=== PATIENT | male | born 1945 | race Caucasian/White ===

== ENCOUNTER → 2019-06-13 08:48 | Outpatient (BNVA) | payer OTHER, SELFPAY | PROVIDERS: PCP Family Medicine; Visit Provider Urology | DX: R97.20 Elevated prostate specific antigen [PSA] (principal); N40.1 Benign prostatic hyperplasia with lower urinary tract symptoms; N39.9 Disorder of urinary system, unspecified | CPT/HCPCS: 81001; 84153 ==

== ENCOUNTER → 2019-12-13 09:00 | Outpatient (BNVA) | payer OTHER, SELFPAY | PROVIDERS: PCP Family Medicine; Visit Provider Urology | DX: N40.1 Benign prostatic hyperplasia with lower urinary tract symptoms (principal); R97.20 Elevated prostate specific antigen [PSA] | CPT/HCPCS: 81001 ==

== ENCOUNTER → 2019-12-26 09:39 | Outpatient (BNVA) | payer OTHER, SELFPAY | PROVIDERS: PCP Family Medicine; Referring Provider Family Medicine; Visit Provider Orthopaedic Surgery | DX: M25.569 Pain in unspecified knee (principal) | CPT/HCPCS: 73560; 73565 ==

== ENCOUNTER → 2020-12-12 08:33 | Outpatient (BNVA) | payer OTHER, SELFPAY | PROVIDERS: PCP Family Medicine; Visit Provider Urology | DX: N40.1 Benign prostatic hyperplasia with lower urinary tract symptoms (principal); R97.20 Elevated prostate specific antigen [PSA] | CPT/HCPCS: 81003; 84153 ==

== ENCOUNTER 2021-12-16 08:13 | Outpatient (CLI) | payer OTHER, SELFPAY | END 2021-12-16 08:14 | disposition home or self-care (01) | LOC: LAB 08:14 | PROVIDERS: PCP Family Medicine; Visit Provider Urology | DX: R97.20 Elevated prostate specific antigen [PSA] (principal); N40.1 Benign prostatic hyperplasia with lower urinary tract symptoms | CPT/HCPCS: 36415; 51741; 51798; 81003; 84153; 99214 ==

== ENCOUNTER 2022-06-15 10:18 | Outpatient (CLI) | payer OTHER, SELFPAY ==
[2022-06-15 12:21] LABS: Prostate Specific AG Urology 5.36 ng/mL (0-4)
== END 2022-06-15 10:19 | disposition home or self-care (01) ==
LOC: LAB 10:23
PROVIDERS: PCP Family Medicine; Visit Provider Urology
DX: N40.1 Benign prostatic hyperplasia with lower urinary tract symptoms (principal)
CPT/HCPCS: 36415; 84153

== ENCOUNTER → 2022-06-23 08:38 | Outpatient (BNVA) | payer OTHER, SELFPAY | PROVIDERS: PCP Family Medicine; Visit Provider Urology | DX: N40.1 Benign prostatic hyperplasia with lower urinary tract symptoms (principal); N13.8 Other obstructive and reflux uropathy; R97.20 Elevated prostate specific antigen [PSA]; Z80.0 Family history of malignant neoplasm of digestive organs | CPT/HCPCS: 51798; 99213 ==

== ENCOUNTER 2023-04-13 20:00 | Outpatient (CLI) | payer OTHER, SELFPAY | END 2023-04-13 20:01 | disposition home or self-care (01) | LOC: SLEEP 04-14 05:52 | PROVIDERS: PCP Family Medicine; Visit Provider Family Medicine | DX: G47.33 Obstructive sleep apnea (adult) (pediatric) (principal); R06.83 Snoring | CPT/HCPCS: 95810 ==

== ENCOUNTER 2023-07-07 11:27 | Emergency (ER) | payer OTHER, SELFPAY ==
[2023-07-07 11:38] VITALS: BP 149/93; PULSE 107; RESP 18; TEMP 36.6; O2SAT 96
--- NOTE | 2023-07-07 12:08 | ED_ITS ---
HPI - Male Genitourinary General: Chief complaint: Urogenital-Male Stated complaint: trouble urinating Time Seen by Provider: 07/07/23 11:37 Source: patient Mode of arrival: ambulatory Limitations: no limitations History of Present Illness: 78-year-old male states he has a history of BPH he does take Flomax daily he states that he has had a very hard time urinating since yesterday. He states he only been able to dribble and feels like his bladder is full and having lower abdominal pain. He denies any fevers. Denies any blood in his urine. Associated symptoms: Deny nausea or vomiting Review of Systems Const: Denies: fever(s), chills, body aches or change in appetite ENMT: Denies: throat pain or dental pain Card: Denies: chest pain Resp: Denies: dyspnea GI: Reports: abdominal pain; Denies: nausea, vomiting or diarrhea : Reports: difficulty urinating Musc: Denies: neck pain or back pain Skin/Breast: Denies: rash Neuro: Denies: headache(s) PFS ED PFSH: Medical History (Updated 07/07/23 @ 14:08 by Shanti Traylor MD) Elevated PSA Normalized without treatment. Large large DIANA without nodular BPH loc w urin obs/LUTS Good response to TAMSULOSIN. Some room for improvement. Encouraged double dose November 2019 Surgical History H/O knee surgery Family History Father , at age83 Cancer Colon Mother , at age 83 Dementia Social History Smoking and tobacco/nicotine status: never used tobacco/nicotine Alcohol intake: current Alcohol intake frequency: few times a week Substance/Drug Use: never Marital status: Current occupational status: retired Current gender identity: Male Physical Exam Const: COMMON NORMALS: no acute distress, patient oriented x3 and healthy appearing HENMT: COMMON NORMALS: normocephalic and atraumatic HEAD & SCALP: normocephalic and atraumatic Neck/C-Spine: COMMON NORMALS: full ROM and supple Chest: COMMONS NORMALS: normal inspection of the chest Resp: COMMON NORMALS: normal respiratory effort Cardio: COMMON NORMALS: regular rate, regular rhythm and No murmurs present (Cardio) RATE: regular rate RHYTHM: regular rhythm GI: COMMON NORMALS: Normal to inspection, nondistended, normoactive bowel sounds present, Soft to palpation and no masses PALPATION: Yes Soft to palpation OTHER: Suprapubic tenderness Extremity: COMMON NORMALS: normal to inspection and full ROM Neuro: COMMON NORMALS: patient oriented x3, moves all extremities and no focal motor deficits Psych: COMMON NORMALS: mental status grossly normal, Normal thought process present and cooperative THOUGHT PROCESS: Normal thought process present Skin: COMMON NORMALS: no rashes or lesions noted and no wounds GENERAL SKIN EXAM: no rashes or lesions noted Course Vital Signs: Vital signs: Vital Signs Temperature 97.9 F 07/07/23 11:38 Pulse Rate 91 07/07/23 12:40 Respiratory Rate 16 07/07/23 13:06 Blood Pressure 133/81 07/07/23 12:40 Pulse Oximetry 97 07/07/23 13:06 Oxygen Delivery Me thod Room Air 07/07/23 11:38 MDM - Male Medical Decision Making Patient presents here with urinary retention did place a Wasserman he feels much improved he has no UTI he is stable for discharge we will get him neurology follow-up he is return if worsening he understands agrees to plan. Will leave Wasserman in place with a leg bag Medical Records I reviewed the patient's medical records. Lab Data I reviewed the patient's lab results. Laboratory Results Urine Color Yellow (Yellow) 07/07/23 13:37 Urine Appearance Clear (CLEAR) 07/07/23 13:37 Urine pH 5 (5-7) 07/07/23 13:37 Ur Specific Marcus 1.015 (1.005-1.030) 07/07/23 13:37 Urine Protein Neg (Negative) 07/07/23 13:37 Urine Glucose (UA) Norm (Normal) 07/07/23 13:37 Urine Ketones 1+ (Negative) H 07/07/23 13:37 Urine Blood Neg (Negative) 07/07/23 13:37 Urine Nitrate Negative (Negative) 07/07/23 13:37 Urine Bilirubin Neg (Negative) 07/07/23 13:37 Urine Urobilinogen Norm mg/dL (Negative) 07/07/23 13:37 Ur Leukocyte Esterase Negative (Negative) 07/07/23 13:37 Urine RBC 25-40 /hpf (0-2) H 07/07/23 13:37 Urine WBC None /hpf (0-5) 07/07/23 13:37 Ur Squamous Epith Cells None /hpf (0-5) 07/07/23 13:37 Amorphous Sediment Not Reportable 07/07/23 13:37 Urine Bacteria Trace /hpf (NONE) 07/07/23 13:37 Urine Mucus Trace /hpf 07/07/23 13:37 No radiology studies performed this visit Discharge Plan Discharge Patient Disposition: Home Clinical Impression: Acute retention of urine Condition: Stable Prescriptions: No Action cyanocobalamin (vitamin B-12) 500 mcg tablet 500 mcg PO DAILY tamsulosin 0.4 mg capsule 0.8 mg PO DAILY Qty: 180 3RF Discharge Orders: Discharge ED (Routine); Ordered 07/07/23 Ordered By: Shanti Traylor Referrals: Kwame Lundberg MD [Primary Care Provider] - Discharge Diet: Advance as tolerated Discharge Activity: Resume usual activity Patient Instructions: Urinary Retention in Men (ED) Coding Level of Care Code ED Administrative Volunteer for Hazel Rodriguez
[2023-07-07 12:40] VITALS: BP 133/81; PULSE 91; O2SAT 93
--- NOTE | 2023-07-07 12:45 | PC.PHAR ---
PT IS [facility] BUT DOES KNOW HIS MEDICATIONS. 07/07/23
[2023-07-07] MEDS: ondansetron 2 mg/ML SDV 2 mL 4 MG IVP (13:03)
[2023-07-07 13:06] VITALS: RESP 16; O2SAT 97
[2023-07-07] MEDS: HYDROmorphone 1 mg/mL INJ 1 mL IVP (13:06)
[2023-07-07 14:03] LABS: Add Urine Microscopic? YES; Bilirubin Urine Neg (Negative); Blood Urine Neg (Negative); Glucose Urine UA Norm (Normal); Leukocyte Esterase Urine Negative (Negative); Nitrate Urine Negative (Negative); Protein Urine Neg (Negative); Specific Gravity, Urine 1.015 (1.005-1.030); Urine Appearance Clear (CLEAR); Urine Color Yellow (Yellow); Urobilinogen Urine Norm (Negative); pH Urine 5 (5-7)
[2023-07-07 14:04] LABS: Add Urine Culture? Yes; Bacteria Urine TRACE /hpf; Ketones Urine 1+ (Negative); Mucus Urine TRACE /hpf; RBC Urine 25-40 /hpf (0-2)
[2023-07-07 14:33] VITALS: BP 102/81; PULSE 82; O2SAT 93
--- NOTE | 2023-07-07 14:33 | DCPLANNER ---
Referral sent to [facility] urology clinic @ [phone]
== END 2023-07-07 14:34 | disposition home or self-care (01) ==
PROVIDERS: Emergency Provider Emergency Medicine; PCP Family Medicine
DX: R33.9 Retention of urine, unspecified (principal)
CPT/HCPCS: 51702; 81001; 87086; 96374; 96375; 99284; J1170; J2405

== ENCOUNTER 2023-07-09 21:32 | Emergency (ER) | payer OTHER, SELFPAY ==
[2023-07-09 21:37] VITALS: BP 188/81; PULSE 68; RESP 18; TEMP 36.8; O2SAT 96; BMI 27.2
--- NOTE | 2023-07-09 22:10 | PC.NURSE ---
bladder scan 509ml
--- NOTE | 2023-07-09 22:34 | PC.NURSE ---
attempted to place catheter x2 with regular 16fr amado and an 18fr coude, could not pass the prostate.
[2023-07-09] MEDS: lidocaine 2% Urojet 20 mL TOPICAL (22:45)
[2023-07-09] MEDS: tamsulosin 0.4 mg Capsule 0.800000000000000044 MG PO (23:22)
[2023-07-10] MEDS: HYDROcodone-acetaminophen 10-325 mg Tablet 1 TAB PO (00:38)
--- NOTE | 2023-07-10 00:38 | W.ED.MALEGU ---
HPI - Male Genitourinary General: Chief complaint: Urogenital-Male Stated complaint: Prostrate Problems\Need Cat Time Seen by Provider: 07/09/23 22:04 History of Present Illness: 78-year-old male presents to the emergency department with complaints of being unable to urinate for the previous 6 hours. He states he was seen here in the emergency department and had a Wasserman catheter placed on 07/07/2023. He states he was seen by Dr. Smiley at [facility] in [facility] earlier today and the Wasserman catheter was removed and he has not been able to urinate since that time. He states he is having intermittent episodes of dribbling urine but is unable to fully urinate. He states his abdomen is a tense tight 6 out of 10 abdominal pain. Review of Systems General: Reports: 10 or more systems reviewed and unremarkable except in HPI and below GI: Reports: abdominal pain : Reports: difficulty urinating, urinary dribbling and difficulty starting urination PFS ED PFSH: Medical History (Updated 07/11/23 @ 22:30 by Scot Ann MD) Elevated PSA Normalized without treatment. Large large DIANA without nodular BPH loc w urin obs/LUTS Good response to TAMSULOSIN. Some room for improvement. Encouraged double dose November 2019 Surgical History H/O knee surgery Family History Father , at age83 Cancer Colon Mother , at age 83 Dementia Social History Smoking and tobacco/nicotine status: never used tobacco/nicotine Alcohol intake: current Alcohol intake frequency: few times a week Substance/Drug Use: never Marital status: Current occupational status: retired Current gender identity: Male Physical Exam Narrative: EXAM NARRATIVE: Constitutional: the patient appears well nourished and of normal development. Vital signs as documented. Appears uncomfortable and in mild distress.. Alert and oriented-to person, place, time and situation. Head, eyes, ears, nose, mouth, throat: Normocephalic, atraumatic. Pupils-equal, round, reactive to light. No scleral icterus. Normal-appearing external ears. Normal-appearing nose, no obvious deviation. Mucous membranes are moist. Phonation is normal. Neck: Supple, trachea is midline, no lymphadenopathy, . Lungs: clear to auscultation to all lung simons. Symmetrical rise and fall of chest, no obvious signs of increased work of breathing at present. Cardiac: Regular rate and rhythm, positive S1, S2. No murmurs, rubs or gallops that I can appreciate Abdomen: Soft, distended, normal active bowel sounds to all quadrants. No palpable masses, no organomegaly and abdominal bruits. Extremities: 2+ pulses in the upper extremities that are equal bilaterally, 2+ pulses in the lower extremities that are equal bilaterally. Non-edematous. Moves all extremities well, sensation to all extremities are noted. Skin: Warm, dry, intact. Course Vital Signs: Vital signs: Vital Signs Temperature 98.2 F 07/09/23 21:37 Pulse Rate 92 07/10/23 00:50 Respiratory Rate 18 07/10/23 00:50 Blood Pressure 184/97 07/10/23 00:50 Pulse Oximetry 97 07/10/23 00:50 Oxygen Delivery Me thod Room Air 07/09/23 21:37 MDM - Male Medical Decision Making Physical exam completed and documented I did review the patient's previous medical record. Given the patient's urinary retention I did request that the nursing staff placed a Wasserman catheter and provide the patient with Flomax as well as pain medication for his discomfort. Unsuccessful attempts to place a Wasserman catheter by the nursing staff. Patient did request that we contact [facility] in [facility]. I did speak with Dr. Coughlin in the emergency department at [facility] in [facility] who accepted the patient for transfer. I did offer for the patient to transfer via ambulance and he stated that he would not take an ambulance that he would have his family members drive him who are accompanying him. Medical Records I reviewed the patient's medical records. No radiology studies performed this visit Discharge Plan Discharge Patient Disposition: Xfer Short-Term Hosp Clinical Impression: Acute urinary retention, Abdominal pain Condition: Stable Referrals: Kwame Lundberg MD [Primary Care Provider] - Discharge Diet: Usual diet Discharge Activity: Resume usual activity Patient Instructions: Abdominal Pain (ED) Coding Level of Care Code ED Senior Data Modeler for Hazel Rodriguez
[2023-07-10 00:50] VITALS: BP 184/97; PULSE 92; RESP 18; O2SAT 97
== END 2023-07-10 00:53 | disposition short-term general hospital (02) ==
PROVIDERS: Emergency Provider Internal Medicine; PCP Family Medicine
DX: N40.1 Benign prostatic hyperplasia with lower urinary tract symptoms (principal); R33.8 Other retention of urine; R10.9 Unspecified abdominal pain
CPT/HCPCS: 99283

== ENCOUNTER 2023-08-05 10:27 | Outpatient (CLI) | payer OTHER, SELFPAY ==
[2023-08-05 10:44] LABS: Basophils # 0.1 10^3/uL (0.0-0.1); Basophils % 0.7 %; Eosinophils # 0.3 10^3/uL (0.0-0.8); Eosinophils % 3.4 %; Hematocrit 45.2 % (37-53); Lymphocytes # 1.1 10^3/uL (0.8-4.8); Lymphocytes % 14.2 %; Mean Corpuscular HGB Conc 34.7 g/dL (30-55); Mean Corpuscular Hemoglobin 32.4 pg (27-33); Mean Corpuscular Volume 93.2 fl (82-101); Mean Platelet Volume 9.3 fL (7.4-10.4); Monocytes # 0.5 10^3/uL (0.2-0.9); Monocytes % 6.5 %; Neutrophils # 5.53 10^3/uL (1.8-7.7); Neutrophils % 74.9 %; Nucleated Red Blood Cells % 0 %; Platelet Count 227 10^3/cmm (157-399); Red Blood Count 4.85 10^6/uL (3.85-5.65); Red Cell Distribution Width 12.1 % (12.1-15.1); White Blood Count 7.38 10^3/uL (3.29-11.43)
[2023-08-05 11:00] LABS: Anion Gap 15.2 (5-19); Blood Urea Nitrogen 13 mg/dL (8-23); Calcium 9.4 mg/dL (8.5-10.5); Carbon Dioxide 23 mmol/L (22-29); Chloride 101 mmol/L (98-107); Glucose 107 mg/dL (65-115); Osmolality Calculated 281 mOsm/kg (285-295); Potassium 4.2 mmol/L (3.5-5.1); Sodium 135 mmol/L (136-145)
== END 2023-08-05 10:28 | disposition home or self-care (01) ==
LOC: LAB 10:30
PROVIDERS: PCP Family Medicine; Visit Provider Urology
DX: Z01.818 Encounter for other preprocedural examination (principal); N40.1 Benign prostatic hyperplasia with lower urinary tract symptoms; R33.9 Retention of urine, unspecified
CPT/HCPCS: 36415; 80048; 85025; 93005

== ENCOUNTER 2023-10-06 20:00 | Outpatient (CLI) | payer OTHER, SELFPAY | END 2023-10-06 20:01 | disposition home or self-care (01) | LOC: SLEEP 10-07 06:23 | PROVIDERS: PCP Family Medicine; Visit Provider Emergency Medicine Emergency Medical Services | DX: Z99.89 Dependence on other enabling machines and devices (principal) | CPT/HCPCS: 95811 ==